=== PATIENT | male | born 1990 | race Caucasian/White ===

== ENCOUNTER 2017-04-11 12:27 | Emergency (ER) | payer OTHER ==
[~2017-04-11] VITALS: Ht 167.6 cm; Wt 52.5 kg
[2017-04-11 12:35] VITALS: Ht 167.6 cm; Wt 52.5 kg
[2017-04-11] MEDS ORDERED: ONDANSETRON 4 MG INJ IV STA (12:56)
[2017-04-11] MEDS ORDERED: SOD CHLORIDE 0.9% 1,000 ML IV STA (12:56)
[2017-04-11] MEDS ORDERED: PANTOPRAZOLE 40 MG INJ IV ONE (13:00)
[2017-04-11 13:17] LABS: ADD SCAN DIFF NO
[2017-04-11 13:45] LABS: ALBUMIN 5.8 g/dl (3.3-4.9)
[2017-04-11 13:48] LABS: ALBUMIN/GLOBULIN RATIO 1.56; BILIRUBIN,INDIRECT 1.3 mg/dl (0-1.1); BILIRUBIN,TOTAL 1.3 mg/dl (0.2-1.3); CALCIUM 9.7 mg/dl (8.4-10.2); CREATININE 1.03 mg/dl (0.61-1.24); TOTAL PROTEIN 9.5 g/dl (6.1-8.1)
[2017-04-11 13:49] LABS: BASOPHILS % 0.4 % (0.0-2.0); EOSINOPHILS # 0.1 10^3/ul (0.0-0.5); EOSINOPHILS % 0.7 % (0.0-7.0); HEMATOCRIT 52.2 % (42.0-52.0); LYMPHOCYTES # 2.4 10^3/ul (0.8-2.9); LYMPHOCYTES % 31.5 % (15.0-51.0); MEAN CORPUSCULAR HEMOGLOBIN 30.5 pg (29.0-33.0); MEAN CORPUSCULAR HGB CONC 35.2 g/dl (32.0-37.0); MEAN CORPUSCULAR VOLUME 86.4 fl (82.0-101.0); MEAN PLATELET VOLUME 9.8 fl (7.4-10.4); MONOCYTE # 0.9 10^3/ul (0.3-0.9); MONOCYTES % 11.9 % (0.0-11.0); NEUTROPHIL # 4.2 10^3/ul (1.6-7.5); NEUTROPHILS % 55.4 % (39.0-77.0); PLATELET COUNT 349 10^3/UL (140-415); RED BLOOD COUNT 6.04 10^6/ul (4.70-6.10); RED CELL DISTRIBUTION WIDTH 12.7 % (11.5-14.5); WHITE BLOOD COUNT 7.5 10^3/ul (4.8-10.8)
[2017-04-11 13:50] LABS: HEMOGLOBIN 18.4 g/dl (14.0-18.0)
[2017-04-11 14:07] LABS: POTASSIUM 2.9 mmol/L (3.5-5.1)
[2017-04-11] MEDS ORDERED: POTASSIUM CHLORIDE (SR) 20 MEQ TAB PO STA (14:07)
[2017-04-11] MEDS ORDERED: SOD CHLORIDE 0.9% 1,000 ML IV ONE (14:23)
[2017-04-11] MEDS ORDERED: METOCLOPRAMIDE 10 MG INJ IV ONE (14:30)
[2017-04-11] MEDS ORDERED: FAMOTIDINE 20 MG INJ IV ONE (14:30)
[2017-04-11 15:10] LABS: ADD UMIC YES; URINE BILIRUBIN (Dip) NEGATIVE (NEGATIVE); URINE BLOOD (Dip) 1+ (NEGATIVE); URINE COLOR LT. YELLOW (YELLOW); URINE GLUCOSE (Dip) NEGATIVE (NEGATIVE); URINE KETONES (Dip) TRACE (NEGATIVE); URINE LEUKOCYTE ESTERASE (Dip) NEGATIVE (NEGATIVE); URINE NITRITE (Dip) NEGATIVE (NEGATIVE); URINE TOTAL PROTEIN (Dip) NEGATIVE (NEGATIVE); URINE UROBILINOGEN (Dip) 1.0 E.U./dL (0.1-1.0)
[2017-04-11 15:20] LABS: URINE RBCS 0-2 /HPF (0)
[2017-04-11] MEDS ORDERED: METO10TA92 PO (15:24)
[2017-04-11] MEDS ORDERED: PANT40TA3 PO (15:24)
[2017-04-11] MEDS ORDERED: ONDA8TAB14 PO (15:24)
--- NOTE | 2017-04-11 15:29 | ERD ---
ER Documentation Chief Complaint Date/Time DATE: 04/11/17 TIME: 15:27 Chief Complaint abdominal pain and vomiting x 5 days HPI This 27-year-old male complains of epigastric abdominal pain and vomiting for last 5 days here. She has had some blood-tinged vomitus and a few episodes but no gross blood or clots. Denies fevers or lower abdominal pain. Patient states she has had intermittent worsening symptoms he believes started after having addiction to pain pills. He has not been taking pain pills for several months or since last year. Denies any previous abdominal problems or history of ulcer disease. He did have an ER visit which had a normal ultrasound a few months ago. ROS All systems reviewed and are negative except as per history of present illness. Medications Home Meds Active Scripts Metoclopramide* (Reglan*) 10 Mg Tablet, 10 MG PO Q6 Y for NAUSEA AND/OR VOMITING , #20 TAB Prov:XUAN SONG MD 04/11/17 Ondansetron (Ondansetron Odt) 8 Mg Tab.rapdis, 8 MG PO Q6H Y for NAUSEA AND/OR VOMITING, #12 TAB Prov:XUAN SONG MD 04/11/17 Pantoprazole* (Protonix*) 40 Mg Tablet.dr, 40 MG PO DAILY, #30 TAB Prov:XUAN SONG MD 04/11/17 Allergies Allergies: Coded Allergies: No Known Allergy (Unverified , 08/10/14) PMhx/Soc Medical and Surgical Hx: pt denies Medical Hx, pt denies Surgical Hx Hx Alcohol Use: No Hx Substance Use: No Hx Tobacco Use: No Smoking Status: Never smoker Physical Exam Vitals Vital Signs Date Time Temp Pulse Resp B/P Pulse Ox O2 Delivery O2 Flow Rate FiO2 04/11/17 12:35 98.2 112 18 134/98 97 Physical Exam Const: [] Alert, [id number], no apparent distress Head: Atraumatic Eyes: Normal Conjunctiva ENT: Normal External Ears, Nose and Mouth. Neck: Full range of motion..~ No meningismus. Resp: Clear to auscultation bilaterally Cardio: Regular rate and rhythm, no murmurs Abd: Soft, mild tenderness in the epigastric area. No rebound no tenderness at McBurney's point no Vieira sign., non distended. Normal bowel sounds Skin: No petechiae or rashes Back: No midline or flank tenderness Ext: No cyanosis, or edema Neur: Awake and alert Psych: Normal Mood and Affect Result Diagram: 04/11/17 1310 04/11/17 1310 Results 24 hrs Laboratory Tests Test 04/11/17 13:10 04/11/17 14:15 White Blood Count 7.510^3/ul Red Blood Count 6.0410^6/ul Hemoglobin 18.4g/dl Hematocrit 52.2% Mean Corpuscular Volume 86.4fl Mean Corpuscular Hemoglobin 30.5pg Mean Corpuscular Hemoglobin Concent 35.2g/dl Red Cell Distribution Width 12.7% Platelet Count 53943^3/UL Mean Platelet Volume 9.8fl Neutrophils % 55.4% Lymphocytes % 31.5% Monocytes % 11.9% Eosinophils % 0.7% Basophils % 0.4% Nucleated Red Blood Cells % 0.0/100WBC Neutrophils # 4.210^3/ul Lymphocytes # 2.410^3/ul Monocytes # 0.910^3/ul Eosinophils # 0.110^3/ul Basophils # 0.010^3/ul Nucleated Red Blood Cells # 0.010^3/ul Sodium Level 132mmol/L Potassium Level 2.9mmol/L Chloride Level 82mmol/L Carbon Dioxide Level 36mmol/L Anion Gap 17 Blood Urea Nitrogen 19mg/dl Creatinine 1.03mg/dl Glucose Level 118mg/dl Calcium Level 9.7mg/dl Total Bilirubin 1.3mg/dl Direct Bilirubin 0.00mg/dl Indirect Bilirubin 1.3mg/dl Aspartate Amino Transf (AST/SGOT) 33IU/L Alanine Aminotransferase (ALT/SGPT) 42IU/L Alkaline Phosphatase 69IU/L Total Protein 9.5g/dl Albumin 5.8g/dl Globulin 3.70g/dl Albumin/Globulin Ratio 1.56 Lipase 52U/L Urine Color LT. YELLOW Urine Clarity CLEAR Urine pH 7.5 Urine Specific [place] <=1.005 Urine Ketones TRACE Urine Nitrite NEGATIVE Urine Bilirubin NEGATIVE Urine Urobilinogen 1.0 E.U./dL Urine Leukocyte Esterase NEGATIVE Urine Microscopic RBC 0-2/HPF Urine Microscopic WBC NONE SEEN/HPF Urine Epithelial Cells RARE Urine Hemoglobin 1+ Urine Glucose NEGATIVE% Urine Total Protein NEGATIVE Current Medications Medications (Trade) Dose Ordered Sig/Tiburcio Route PRN Reason Start Time Stop Time Status Last Admin Dose Admin Sodium Chloride (NS) 1,000 ml @ 1,000 mls/hr Q1H STAT IV 04/11/17 12:56 04/11/17 13:55 DC 04/11/17 13:09 Ondansetron HCl (Zofran Inj) 4 mg ONCE STAT IV 04/11/17 12:56 04/11/17 12:58 DC 04/11/17 13:08 Pantoprazole (Protonix Iv) 40 mg ONCE ONCE IV 04/11/17 13:00 04/11/17 13:01 DC 04/11/17 13:08 Potassium Chloride (Klor-Con 20) 40 meq ONCE STAT PO 04/11/17 14:07 04/11/17 14:08 DC 04/11/17 14:14 Metoclopramide HCl (Reglan) 10 mg ONCE ONCE IV 04/11/17 14:30 04/11/17 14:31 DC 04/11/17 14:29 Famotidine 20 mg 20 mg ONCE ONCE IV 04/11/17 14:30 04/11/17 14:31 DC 04/11/17 14:29 Sodium Chloride (NS) 1,000 ml @ 0 mls/hr Q0M ONCE IV 04/11/17 14:23 04/11/17 14:24 DC 04/11/17 14:28 Procedures/MDM CBC shows normal white blood cell count. Hemoglobin is 18.4. CMP is significant for sodium 132 and chloride of 82. Potassium is 2.9. Patient is a CO2 of 36. BUN and creatinine normal. Glucose is normal. Patient was given 2 L normal saline IV for findings significant of hypochloremic metabolic alkalosis presumably due to vomiting. He was given potassium 40 mEq by mouth. Patient was given Protonix 40 mg IV, Zofran form of grams IV and addition was given Pepcid 20 mg IV and Reglan 10 mg IV persistent sensation of acid or epigastric pain during his ED course. Patient felt better after observation treatment. Patient presents with epigastric pain and vomiting signs and symptoms suggestive of gastritis or peptic ulcer disease. There is no signs or symptoms of anemia or perforation or acute abdomen or appendicitis. I believe the patient would benefit from an outpatient endoscopy. He will be discharged home with a prescription of Protonix Zofran and Reglan and instructed to follow- up with gastroenterology. He was advised he may need authorization from his primary care doctor. He should return for fevers, vomiting for treatment, worsening pain, blood, new worsening symptoms with primary care doctor this week. The patient was stable with no new complaints during the ER course. Clinically, there is no current evidence to suggest meningitis, sepsis, acute abdomen, pneumonia, acute coronary syndrome, pulmonary embolism, or any other emergent condition appearing to require further evaluation or hospitalization. The patient should certainly return for any new or worsening symptoms per the aftercare instructions. They should otherwise follow-up with her primary care doctor for reevaluation this week. Departure Diagnosis: Primary Impression: Abdominal pain Abdominal location: epigastric Qualified Code: R10.13 - Epigastric pain Additional Impression: Vomiting Vomiting type: unspecified Nausea presence: unspecified Condition: Stable Patient Instructions: Abdominal Pain, Gastritis (Adult), Vomiting (6Y-Adult) Referrals: BHARTI AVELAR MD, SALEEM A MD JOGANI, PIYUSH K MD Additional Instructions: Suspect gastritis. Recommend GI for further evaluation and possible endoscopy persistent symptoms. Recheck for significant blood, fevers, lower abdominal pain, new worsening symptoms. May need authorization from primary doctor for specialist visit. EAT 1 banana per day for the next week to replace potassium. XUAN SONG MD April 11, 2017 15:29
== END 2017-04-11 15:35 | disposition home or self-care (01) ==
LOC: FTE 12:27
DX: R10.13 Epigastric pain (principal); R11.10 Vomiting, unspecified
CPT/HCPCS: 36415; 80053; 81001; 83690; 85025; 96361; 96374; 96375; C9113; J2405; J2765; J7030; Z7502; Z7610

== ENCOUNTER 2017-09-11 23:10 | Emergency (ER) | payer OTHER ==
[~2017-09-11] VITALS: Ht 170.2 cm; Wt 53.0 kg
[~2017-09-11 23:10] MED LIST: METO10TA92 PO; ONDA8TAB14 PO; PANT40TA3 PO
[2017-09-11 23:13] VITALS: Ht 170.2 cm; Wt 53.0 kg
[2017-09-12] MEDS ORDERED: SOD CHLORIDE 0.9% 1,000 ML IV STA (01:24)
[2017-09-12] MEDS ORDERED: ONDANSETRON 4 MG INJ IV STA (01:24)
[2017-09-12 02:01] LABS: BASOPHILS % 0.1 % (0.0-2.0); HEMATOCRIT 45.2 % (42.0-52.0); LYMPHOCYTES # 1.2 10^3/ul (0.8-2.9); LYMPHOCYTES % 17.6 % (15.0-51.0); MEAN CORPUSCULAR HEMOGLOBIN 31.4 pg (29.0-33.0); MEAN CORPUSCULAR HGB CONC 35.4 g/dl (32.0-37.0); MEAN CORPUSCULAR VOLUME 88.6 fl (82.0-101.0); MEAN PLATELET VOLUME 9.9 fl (7.4-10.4); MONOCYTE # 0.3 10^3/ul (0.3-0.9); MONOCYTES % 4.7 % (0.0-11.0); NEUTROPHIL # 5.4 10^3/ul (1.6-7.5); NEUTROPHILS % 77.3 % (39.0-77.0); PLATELET COUNT 312 10^3/UL (140-415); RED CELL DISTRIBUTION WIDTH 13.2 % (11.5-14.5)
--- NOTE | 2017-09-12 02:04 | RADRPT ---
PROCEDURE: CT abdomen and pelvis without intravenous contrast. CLINICAL INDICATION: Pain. TECHNIQUE: CT of the abdomen/pelvis was performed utilizing axial images with reconstructions in s agittal and coronal planes. The administered radiation dose is CTDI 4.1 mGy, DLP 224 mGy-cm. One or more of the following dose reduction techniques were used: automated exposure control, adjustment of the mA and/or kV according to patient size and/or use of iterative reconstruction technique. COMPARISON: No pertinent prior examinations were submitted for comparison. FINDINGS: Visualized Chest: There is a 4 mm subpleural nodule in the left lower lobe on image 30 of series 3. Abdomen: The liver, spleen, pancreas, gallbladder,and adrenal glands are unremarkable. The kidneys are without hydronephrosis. No definite urinary calculi are seen. There is no evidence of bowel obstruction. The appendix is normal. No intra-abdominal free air is seen. There is no evidence of intra-abdominal adenopathy or free fluid. Pelvis: There is no evidence of pelvic adenopathy or free fluid. The prostate and bladder are unremarkable. Osseous structures: Unremarkable. IMPRESSION: No acute findings. 4 mm subpleural nodule in the left lower lobe. Optional follow-up can be obtained 12 months only if the patient has a history of smoking and / or neoplasm. RPTAT: HIKT .Yannick Egan MD, Date Time Electronically viewed and signed by .Yannick Egan MD, on 09/12/2017 02:03 .T/
--- NOTE | 2017-09-12 02:25 | ERD ---
ER Documentation Chief Complaint Chief Complaint abd pain after vomiting yestreday. unable to eat or drink HPI 27-year-old male presents here to emergency department for complaints of epigastric pain that started yesterday. Patient describes the pain as sharp pain, 4/10 scale intermittent pain, denies pain at this time, accompanied with vomiting. Patient is unable to tolerate fluids at home because of the vomiting. Patient denies any diarrhea. Patient denies any fever or chills. ROS All systems reviewed and are negative except as per history of present illness. Medications Home Meds Active Scripts Magaldrate/Simethicone* (Mylanta*) 355 Ml Susp, 30 ML PO QID Y for GASTROINTESTINAL UPSET, #1 BOTTLE Prov:ROSS GALLAGHER NP 09/12/17 Omeprazole* (Omeprazole*) 20 Mg Capsule., 20 MG PO DAILY, #30 Prov:ROSS GALLAGHER NP 09/12/17 Ondansetron (Ondansetron Odt) 4 Mg Tab.rapdis, 4 MG PO Q8 Y for NAUSEA AND/OR VOMITING, #20 TAB Prov:ROSS GALLAGHER NP 09/12/17 Metoclopramide* (Reglan*) 10 Mg Tablet, 10 MG PO Q6 Y for NAUSEA AND/OR VOMITING , #20 TAB Prov:XUAN SONG MD 04/11/17 Ondansetron (Ondansetron Odt) 8 Mg Tab.rapdis, 8 MG PO Q6H Y for NAUSEA AND/OR VOMITING, #12 TAB Prov:XUAN SONG MD 04/11/17 Pantoprazole* (Protonix*) 40 Mg Tablet., 40 MG PO DAILY, #30 TAB Prov:XUAN SONG MD 04/11/17 Allergies Allergies: Coded Allergies: No Known Allergy (Unverified , 09/11/17) PMhx/Soc Medical and Surgical Hx: pt denies Medical Hx History of Surgery: Yes (left leg) Anesthesia Reaction: No Hx Neurological Disorder: No Hx Respiratory Disorders: No Hx Cardiac Disorders: No Hx Psychiatric Problems: No Hx Miscellaneous Medical Probl: No Hx Alcohol Use: No Hx Substance Use: No Hx Tobacco Use: No Smoking Status: Never smoker FmHx Family History: No coronary disease, No diabetes, No other Physical Exam Vitals Vital Signs Date Time Temp Pulse Resp B/P Pulse Ox O2 Delivery O2 Flow Rate FiO2 09/11/17 23:13 99.2 111 18 125/62 98 Physical Exam GENERAL: The patient is well developed and appropriate for usual state of health, in no apparent distress. CHEST: Clear to auscultation bilaterally. There are no rales, wheezes or rhonchi. HEART: Regular rate and rhythm. No murmurs, clicks, rubs or gallops. No S3 or S4. ABDOMEN: Soft, nontender and nondistended. Good bowel sounds. No rebound or guarding. No gross peritonitis. No gross organomegaly or masses. No Vieira sign or McBurney point tenderness. BACK: No midline or flank tenderness. EXTREMITIES: Equal pulses bilaterally. There is no peripheral clubbing, cyanosis or edema. No focal swelling or erythema. Full range of motion. Grossly neurovascularly intact. NEURO: Alert and oriented. Cranial nerves 2-12 intact. Motor strength in all 4 extremities with 5/5 strength. Sensation grossly intact. Normal speech and gait. SKIN: There is no apparent rash or petechia. The skin is warm and dry. HEMATOLOGIC AND LYMPHATIC: There is no evidence of excessive bruising or lymphedema. No gross cervical, axillary, or inguinal lymphadenopathy. Result Diagram: 09/12/176 09/12/17145 Results 24 hrs Laboratory Tests Test 09/12/17 01:46 09/12/17 03:22 09/12/17 03:32 White Blood Count 7.010^3/ul Red Blood Count 5.1010^6/ul Hemoglobin 16.0g/dl Hematocrit 45.2% Mean Corpuscular Volume 88.6fl Mean Corpuscular Hemoglobin 31.4pg Mean Corpuscular Hemoglobin Concent 35.4g/dl Red Cell Distribution Width 13.2% Platelet Count 85329^3/UL Mean Platelet Volume 9.9fl Neutrophils % 77.3% Lymphocytes % 17.6% Monocytes % 4.7% Eosinophils % 0.0% Basophils % 0.1% Nucleated Red Blood Cells % 0.0/100WBC Neutrophils # 5.410^3/ul Lymphocytes # 1.210^3/ul Monocytes # 0.310^3/ul Eosinophils # 0.010^3/ul Basophils # 0.010^3/ul Nucleated Red Blood Cells # 0.010^3/ul Sodium Level 145mmol/L Potassium Level 3.5mmol/L Chloride Level 93mmol/L Carbon Dioxide Level 30mmol/L Anion Gap 26 Blood Urea Nitrogen 17mg/dl Creatinine 0.95mg/dl Glucose Level 101mg/dl Calcium Level 10.3mg/dl Total Bilirubin 0.8mg/dl Direct Bilirubin 0.00mg/dl Indirect Bilirubin 0.8mg/dl Aspartate Amino Transf (AST/SGOT) 23IU/L Alanine Aminotransferase (ALT/SGPT) 37IU/L Alkaline Phosphatase 69IU/L Total Protein 9.0g/dl Albumin 5.9g/dl Globulin 3.10g/dl Albumin/Globulin Ratio 1.90 Lipase 68U/L Urine Color YELLOW Urine Clarity CLEAR Urine pH 8.0 Urine Specific [place] 1.029 Urine Ketones 2+mg/dL Urine Nitrite NEGATIVEmg/dL Urine Bilirubin NEGATIVEmg/dL Urine Urobilinogen 2+mg/dL Urine Leukocyte Esterase NEGATIVELeu/ul Urine Microscopic RBC 6/HPF Urine Microscopic WBC 0/HPF Urine Mucus FEW/HPF Urine Hemoglobin NEGATIVEmg/dL Urine Glucose NEGATIVEmg/dL Urine Total Protein 2+mg/dl Bedside Urine pH (LAB) 8.5 Bedside Urine Protein (LAB) 2+ Bedside Urine Glucose (UA) Negative Bedside Urine Ketones (LAB) 4+ Bedside Urine Blood Trace-intact Bedside Urine Nitrite (LAB) Negative Bedside Urine Leukocyte Esterase (L Negative Current Medications Medications (Trade) Dose Ordered Sig/Tiburcio Route PRN Reason Start Time Stop Time Status Last Admin Dose Admin Sodium Chloride (NS) 1,000 ml @ 1,000 mls/hr Q1H STAT IV 09/12/17 01:24 09/12/17 02:23 DC 09/12/17 01:41 Ondansetron HCl (Zofran Inj) 4 mg ONCE STAT IV 09/12/17 01:24 09/12/17 01:25 DC 09/12/17 01:42 Patient was given Zofran here in the emergency department. After treatment, patient was able to tolerate po fluids here in the emergency department without any vomiting. There is no signs and symptoms of dehydration. Normal saline IV bolus was given here in emergency department for rehydration, patient tolerated IV fluids. PROCEDURE: CT abdomen and pelvis without intravenous contrast. CLINICAL INDICATION: Pain. TECHNIQUE: CT of the abdomen/pelvis was performed utilizing axial images with reconstructions in sagittal and coronal planes. The administered radiation dose is CTDI 4.1 mGy, DLP 224 mGy-cm. One or more of the following dose reduction techniques were used: automated exposure control, adjustment of the mA and/or kV according to patient size and/or use of iterative reconstruction technique. COMPARISON: No pertinent prior examinations were submitted for comparison. FINDINGS: Visualized Chest: There is a 4 mm subpleural nodule in the left lower lobe on image 30 of series 3. Abdomen: The liver, spleen, pancreas, gallbladder,and adrenal glands are unremarkable. The kidneys are without hydronephrosis. No definite urinary calculi are seen. There is no evidence of bowel obstruction. The appendix is normal. No intra- abdominal free air is seen. There is no evidence of intra-abdominal adenopathy or free fluid. Pelvis: There is no evidence of pelvic adenopathy or free fluid. The prostate and bladder are unremarkable. Osseous structures: Unremarkable. IMPRESSION: No acute findings. 4 mm subpleural nodule in the left lower lobe. Optional follow-up can be obtained 12 months only if the patient has a history of smoking and / or neoplasm. RPTAT: HIKT .Yannick Egan MD, MD Date Time Electronically viewed and signed by .Yannick Egan MD, on 09/12/2017 02:03 .T/ CC: ROSS GALLAGHER [facility] Procedures/MDM Medical Decision Making: Symptoms of vomiting and abdominal pain nonspecific at this time, possible viral infection. Can be also from gastritis. No pancreatitis, no choledocholithiasis, no cholecystitis, no symptoms of any abdominal emergencies. There is low suspicion for abdominal emergencies at this time. Patients abdominal exam is normal at this time. Patients radiology exam does not show any abdominal emergencies at this time. There is low suspicion for appendicitis, cholecystitis, abdominal aortic aneurysms or peritonitis at this time. There is low suspicion for sepsis. Patient appears well and is hemodynamically stable. Disposition: Home. Condition: Stable Prescription Zofran, omeprazole, Mylanta Instructions: Patient is advised to take medications as prescribed. Patient is advised to rest, increase fluid intake and do brat diet for next 1-2 days and progress as tolerated. Patient is advised that if symptoms are worse, severe abdominal pain, uncontrolled vomiting, high fever, severe flank pain, worst signs and symptoms, to return to the emergency department immediately. Otherwise, patient can follow up with primary care doctor in 5-7 days. Disclaimer: Inadvertent spelling and grammatical errors are likely due to EHR/ dictation software use and do not reflect on the overall quality of patient care. Also, please note that the electronic time recorded on this note does not necessarily reflect the actual time of the patient encounter. Departure Diagnosis: Primary Impression: Abdominal pain Abdominal location: epigastric Qualified Code: R10.13 - Epigastric pain Additional Impression: Vomiting Vomiting type: unspecified Vomiting Intractability: unspecified Nausea presence: unspecified Qualified Code: R11.10 - Vomiting, intractability of vomiting not specified, presence of nausea not specified, unspecified vomiting type Condition: Stable Patient Instructions: Abdominal Pain, Vomiting (6Y-Adult) Additional Instructions: Patient is advised to take medications as prescribed. Patient is advised to rest, increase fluid intake and do brat diet for next 1-2 days and progress as tolerated. Patient is advised that if symptoms are worse, severe abdominal pain , uncontrolled vomiting, high fever, severe flank pain, worst signs and symptoms , to return to the emergency department immediately. Otherwise, patient can follow up with primary care doctor in 5-7 days. 4 mm subpleural nodule in the left lower lobe. follow-up can be obtained 12 months with ROSS FRAGOSO NP Sep 12, 2017 02:25
[2017-09-12 02:35] LABS: ALBUMIN 5.9 g/dl (3.3-4.9); ALBUMIN/GLOBULIN RATIO 1.9; BILIRUBIN,INDIRECT 0.8 mg/dl (0-1.1); BILIRUBIN,TOTAL 0.8 mg/dl (0.2-1.3); CALCIUM 10.3 mg/dl (8.4-10.2); CREATININE 0.95 mg/dl (0.61-1.24); POTASSIUM 3.5 mmol/L (3.5-5.1)
[2017-09-12 03:31] LABS: URINE BLOOD (Dip) POC Trace-intact (NEGATIVE)
[2017-09-12 03:53] LABS: ADD UMIC YES; UR ASCORBIC ACID NEGATIVE (NEGATIVE); UR BILIRUBIN (Dip) NEGATIVE (NEGATIVE); UR BLOOD (Dip) NEGATIVE (NEGATIVE); UR CLARITY CLEAR (CLEAR); UR COLOR YELLOW (YELLOW); UR GLUCOSE (Dip) NEGATIVE (NEGATIVE); UR KETONES (Dip) 2+ mg/dL (NEGATIVE); UR LEUKOCYTE ESTERASE (Dip) NEGATIVE Leu/ul (NEGATIVE); UR MUCUS FEW /HPF (NONE SEEN); UR NITRITE (Dip) NEGATIVE (NEGATIVE); UR RBC 6 /HPF (0-5); UR SPECIFIC GRAVITY (Dip) 1.029 (1.003-1.030); UR TOTAL PROTEIN (Dip) 2+ mg/dl (NEGATIVE); UR UROBILINOGEN (Dip) 2+ mg/dL (NEGATIVE)
[2017-09-12] MEDS ORDERED: ONDA4TAB14 PO (03:53)
[2017-09-12] MEDS ORDERED: OMEP20CA16 PO (03:53)
[2017-09-12] MEDS ORDERED: MAG-19 PO (03:53)
[2017-09-12 04:09] VITALS: BP 108/51; PULSE 73; RESP 20; TEMP 98.9
== END 2017-09-12 04:10 | disposition home or self-care (01) ==
LOC: FTE 23:10
DX: R10.13 Epigastric pain (principal); R11.10 Vomiting, unspecified
CPT/HCPCS: 36415; 74176; 80053; 81001; 83690; 85025; 96374; J2405; J7030; Z7502; 81003